=== PATIENT | female | born 1995 | race Caucasian/White ===

== ENCOUNTER 2021-10-05 01:26 | Emergency (ER) | payer OTHER ==
[2021-10-05] MEDS ORDERED: diphenhydrAMINE 25 MG CAP ONE (03:04)
[2021-10-05] MEDS ORDERED: EPINEPHrine 1 MG/ML VIAL ONE (03:34)
== END 2021-10-05 04:35 ==
LOC: ERS 01:26
DX: L50.0 Allergic urticaria (principal); D49.512 Neoplasm of unspecified behavior of left kidney; Z79.899 Other long term (current) drug therapy
CPT/HCPCS: J0171

== ENCOUNTER 2021-10-05 20:50 | Emergency (ER) | payer OTHER ==
[2021-10-05] MEDS ORDERED: Famotidine 20 MG TAB ONE (21:32)
[2021-10-05] MEDS ORDERED: diphenhydrAMINE 25 MG CAP ONE (21:32)
[2021-10-06] MEDS ORDERED: EPINEPHrine 1 MG/10 ML Abboject SYRINGE ONE (00:19)
[2021-10-06] MEDS ORDERED: methylPREDNISolone Sod Succ/PF 125 MG/2 ML VIAL ONE (00:19)
[2021-10-06] MEDS ORDERED: EPINEPHrine 1 MG/ML VIAL ONE (00:24)
[2021-10-06] MEDS ORDERED: diphenhydrAMINE 12.5 MG/5 ML UDCUP ONE (02:22)
[2021-10-06] MEDS ORDERED: diphenhydrAMINE 50 MG/ML VIAL ONE (02:23)
== END 2021-10-06 04:10 ==
LOC: ERS 20:50
DX: L50.0 Allergic urticaria (principal); D49.512 Neoplasm of unspecified behavior of left kidney; Z79.899 Other long term (current) drug therapy
CPT/HCPCS: 96372; 96374; 96375; 99283; J0171; J1200; J2930; Q0163

== ENCOUNTER 2021-11-09 12:13 | Outpatient (CLI) | payer OTHER | END 2021-11-09 12:14 | disposition home or self-care (01) | LOC: BICULT 12:13 | PROVIDERS: ATTEND Nurse Practitioner Family | DX: N28.89 Other specified disorders of kidney and ureter (principal) | CPT/HCPCS: 76770 ==